=== PATIENT | male | born 1990 | race Caucasian/White ===

== ENCOUNTER 2025-01-27 11:23 | Inpatient (IN) | payer SELFPAY ==
[2025-01-27 11:27] VITALS: BP 139/91; PULSE 98; TEMP 36.9; O2SAT 98; BMI 29.2
--- NOTE | 2025-01-27 11:43 | ED.C_ITS ---
HPI - Psych 2 General: Chief Complaint: Psychiatric Symptoms Stated Complaint: aggression, mhe, not taking medication Time Seen by Provider: 01/27/25 11:37 History of Present Illness: 34-year-old male presents to the emergen cy room with complaints of depression. He is on duloxetine and doxepin. But he has not been taking his medications. He states he is extremely depressed he cries frequently while we are taking his history. He denies doing anything to harm himself. He came in with his father who reported that he had been wandering in the with. When asked the patient if he did anything to harm self or had plans he said he was just going to go out in the [place] and stay there when asked specifically if he had done anything to harm himself today he denied it. Father reported to nursing staff he has been very aggressive. Patient is seen by Dr. Gamez here in [facility] but has not seen him for nearly a year. Patient states he was started on antidepressants 2 years ago about a year ago the dose was changed he does not feel like they are really helping much. Father states patient has been very aggressive towards uncle and at times him. He is concerned he may hurt someone. He denies the patient made any suicidal threats. Associated symptoms: Reports depression Related Data Home Medications ?Medication ?Instructions ?Recorded ?Confirmed No Known Home Medications 01/27/2501/09 Allergies Allergy/AdvReac Type Severity Reaction Status Date / Time No Known Allergies Allergy Verified 01/27/25 11:34 Review of Systems 2 Const: Denies: fever(s) or chills Card: Denies: chest pain Resp: Denies: dyspnea GI: Denies: abdominal pain : Denies: dysuria, urinary frequency or urinary urgency Musc: Denies: neck pain or back pain Skin/Breast: Denies: rash Psych: Reports: anxiety and depression PFS ED 2 PFSH: Medical History Insomnia BMI 30.0-30.9,adult Anxiety and depression Family History Father Depression Hypertension Anxiety Mother Diabetes Depression Blindness and low vision Low bone density Social History Smoking and tobacco/nicotine status: unknown if used tobacco/nicotine Alcohol intake: never Substance/Drug Use: never Physical Exam 2 Const: COMMON NORMALS: no acute distress GENERAL APPEARANCE: cooperative and comfortable ORIENTATION/CONSCIOUSNESS: Yes awake, Yes oriented to person, Yes oriented to place and Yes oriented to time HENMT: COMMON NORMALS: normocephalic, atraumatic and hearing grossly normal bilaterally HEAD & SCALP: normocephalic and atraumatic Resp: COMMON NORMALS: normal respiratory effort, No retractions, No use of accessory muscles and clear to auscultation bilaterally AUSCULTATION: clear to auscultation bilaterally Cardio: COMMON NORMALS: regular rate, regular rhythm and No murmurs present (Cardio) RATE: regular rate RHYTHM: regular rhythm Extremity: COMMON NORMALS: normal to inspection, capillary refill normal, no clubbing, cyanosis or edema, no calf tenderness and no pedal edema Neuro: SENSORIUM/ORIENTATION: Yes oriented to person, Yes oriented to place and Yes oriented to time Skin: COMMON NORMALS: no rashes or lesions noted GENERAL SKIN EXAM: no rashes or lesions noted Course 2 Vital Signs: Vital signs: Vital Signs Temperature 98.4 F 01/27/25 11:27 Pulse Rate 101 H 01/27/25 15:09 Respiratory Rate 18 01/27/25 15:09 Blood Pressure 145/92 01/27/25 15:09 Pulse Oximetry 98 01/27/25 15:09 Oxygen Delivery Me thod Room Air 01/27/25 15:09 MDM - Psych Medical Decision Making Discussed with Dr. Antonio. Will admit for depression and suicidal ideation. Orders written Medical Records I reviewed the patient's medical records. Lab Data I reviewed the patient's lab results. 01/27/25 11:47 01/27/25 11:47 Laboratory Results WBC 10.31 10^3/uL (3.29-11.43) 01/27/25 11:47 RBC 5.87 10^6/uL (3.85-5.65) H 01/27/25 11:47 Hgb 17.10 g/dL (11.27-16.99) H 01/27/25 11:47 Hct 50.1 % (37-53) 01/27/25 11:47 MCV 85.3 fl (82-101) 01/27/25 11:47 MCH 29.1 pg (27-33) 01/27/25 11:47 MCHC 34.1 g/dL (30-55) 01/27/25 11:47 RDW 12.6 % (12.1-15.1) 01/27/25 11:47 Plt Count 233 10^3/cmm (157-399) 01/27/25 11:47 MPV 10.3 fL (7.4-10.4) 01/27/25 11:47 Neut % (Auto) 70.8 % 01/27/25 11:47 Lymph % (Auto) 16.9 % 01/27/25 11:47 [place] % (Auto) 8.9 % 01/27/25 11:47 Eos % (Auto) 1.7 % 01/27/25 11:47 Baso % (Auto) 1.4 % 01/27/25 11:47 Neut # (Auto) 7.30 10^3/uL (1.8-7.7) 01/27/25 11:47 Lymph # (Auto) 1.7 10^3/uL (0.8-4.8) 01/27/25 11:47 [place] # (Auto) 0.9 10^3/uL (0.2-0.9) 01/27/25 11:47 Eos # (Auto) 0.2 10^3/uL (0.0-0.8) 01/27/25 11:47 Baso # (Auto) 0.1 10^3/uL (0.0-0.1) 01/27/25 11:47 Nucleated RBC % (auto) 0 % 01/27/25 11:47 Nucleated RBCs # 0.0 /100WBC 01/27/25 11:47 Sodium 139 mmol/L (136-145) 01/27/25 11:47 Potassium 3.9 mmol/L (3.5-5.1) 01/27/25 11:47 Chloride 102 mmol/L (98-107) 01/27/25 11:47 Carbon Dioxide 23 mmol/L (22-29) 01/27/25 11:47 Anion Gap 17.9 (5-19) 01/27/25 11:47 BUN 11 mg/dL (6-20) 01/27/25 11:47 Creatinine 0.8 mg/dL (0.7-1.2) 01/27/25 11:47 GFR Calculation 111.3 mL/min (90-130) 01/27/25 11:47 Glucose 95 mg/dL (65-115) 01/27/25 11:47 Calculated Osmolality 287 mOsm/kg (285-295) 01/27/25 11:47 Calcium 9.8 mg/dL (8.5-10.5) 01/27/25 11:47 Total Bilirubin 0.5 mg/dL (0.15-1.2) 01/27/25 11:47 AST 16 U/L (0-40) 01/27/25 11:47 ALT 23 U/L (0-41) 01/27/25 11:47 Alkaline Phosphatase 88 U/L (40-130) 01/27/25 11:47 Total Protein 7.4 g/dL (6.6-8.7) 01/27/25 11:47 Albumin 4.5 g/dL (3.5-5.2) 01/27/25 11:47 Globulin 2.9 g/dL (1.3-4.6) 01/27/25 11:47 Salicylates < 0.3 mg/dL (3-10) L 01/27/25 11:47 Acetaminophen < 5.0 ug/mL (10-30) L 01/27/25 11:47 No radiology studies performed this visit Discharge Plan Discharge Patient Disposition: Admitted As Inpatient Admit Provider: Antony Antonio Clinical Impression: Anxiety and depression, Suicidal ideation Condition: Stable Coding Level of Care Code ED Multigrapher for Sapna Bravo
[2025-01-27 11:54] LABS: Basophils # 0.1 10^3/uL (0.0-0.1); Basophils % 1.4 %; Eosinophils # 0.2 10^3/uL (0.0-0.8); Eosinophils % 1.7 %; Hematocrit 50.1 % (37-53); Lymphocytes # 1.7 10^3/uL (0.8-4.8); Lymphocytes % 16.9 %; Mean Corpuscular HGB Conc 34.1 g/dL (30-55); Mean Corpuscular Hemoglobin 29.1 pg (27-33); Mean Corpuscular Volume 85.3 fl (82-101); Mean Platelet Volume 10.3 fL (7.4-10.4); Monocytes # 0.9 10^3/uL (0.2-0.9); Monocytes % 8.9 %; Neutrophils % 70.8 %; Nucleated Red Blood Cells % 0 %; Platelet Count 233 10^3/cmm (157-399); Red Blood Count 5.87 10^6/uL (3.85-5.65); Red Cell Distribution Width 12.6 % (12.1-15.1); White Blood Count 10.31 10^3/uL (3.29-11.43)
[2025-01-27 12:12] LABS: Alanine Aminotransferase 23 U/L (0-41); Albumin Level 4.5 g/dL (3.5-5.2); Alkaline Phosphatase 88 U/L (40-130); Anion Gap 17.9 (5-19); Aspartate Amino Transferase 16 U/L (0-40); Blood Urea Nitrogen 11 mg/dL (6-20); Calcium 9.8 mg/dL (8.5-10.5); Carbon Dioxide 23 mmol/L (22-29); Chloride 102 mmol/L (98-107); Creatinine Clr Calc Pharmacy 136.7014; Globulin 2.9 g/dL (1.3-4.6); Glomerular Filtration Rate 111.3 mL/min (90-130); Glucose 95 mg/dL (65-115); Osmolality Calculated 287 mOsm/kg (285-295); Potassium 3.9 mmol/L (3.5-5.1); Sodium 139 mmol/L (136-145); Total Bilirubin 0.5 mg/dL (0.15-1.2); Total Protein 7.4 g/dL (6.6-8.7)
[2025-01-27 12:14] LABS: Acetaminophen < 5.0 ug/mL (10-30); Salicylate < 0.3 mg/dL (3-10)
[2025-01-27 14:13] LABS: Amphetamines Screen Urine Negative (Negative); Barbiturates Screen Urine Negative (Negative); Benzodiazepines Screen Urine Negative (Negative); Cocaine Screen Urine Negative (Negative); Opiate Screen Urine Negative (Negative); PCP Screen Urine Negative (Negative); THC Screen Urine Negative (Negative)
[2025-01-27 15:09] VITALS: BP 145/92; PULSE 101; RESP 18; O2SAT 98
[2025-01-27] MEDS: hyDROXYzine 25 mg Capsule 50 MG PO ×2 (15:49→23:02)
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
[2025-01-27 19:31] VITALS: BP 125/72; PULSE 95; RESP 15; TEMP 36.5; O2SAT 95
[2025-01-27] MEDS: trazodone 50 mg Tablet PO (23:02)
[2025-01-28 06:00] VITALS: BP 105/68; PULSE 86; RESP 16; TEMP 36.6; O2SAT 96
[2025-01-28] MEDS: nicotine 2 mg Gum BUCCAL (12:42)
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
[2025-01-28 14:00] VITALS: BP 120/76; PULSE 95; RESP 18; TEMP 36.3; O2SAT 96
[2025-01-28] MEDS: fluoxetine 20 mg Capsule PO (14:45)
--- NOTE | 2025-01-28 14:49 | PC.NURSE ---
CALLED [facility] IN [place] TO VERIFY HOME MEDICATIONS. ENDOSCOPY NURSE STATED PATIENT HAS NOT HAD ANY MEDS FILLED OR PICKED UP SINCE APRIL 2024 FOLLOWS: CYMBALTA 90 MG DAILY, DOXEPIN 25 MG @ HS PRN, EFFEXOR 37.5 MG DAILY. INFO RELAYED TO DR. PATTERSON
[2025-01-28 20:19] VITALS: BP 118/77; PULSE 76; RESP 18; TEMP 36.6; O2SAT 95
[2025-01-28] MEDS: trazodone 50 mg Tablet PO (20:22)
[2025-01-29 06:00] VITALS: BP 119/67; PULSE 92; RESP 18; TEMP 36.8; O2SAT 97
[2025-01-29] MEDS: nicotine 2 mg Gum BUCCAL ×3 (08:31→20:24)
[2025-01-29] MEDS: fluoxetine 20 mg Capsule PO (08:31)
[2025-01-29 14:00] VITALS: BP 115/78; PULSE 85; RESP 18; TEMP 36.6; O2SAT 97
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
[2025-01-29 19:59] VITALS: BP 119/67; PULSE 85; RESP 18; O2SAT 96
[2025-01-29] MEDS: trazodone 50 mg Tablet PO (20:24)
[2025-01-30 06:00] VITALS: BP 104/67; PULSE 75; RESP 16; O2SAT 99
[2025-01-30] MEDS: fluoxetine 20 mg Capsule PO (08:25)
[2025-01-30] MEDS: nicotine 2 mg Gum BUCCAL ×4 (08:25→17:18)
[2025-01-30 14:00] VITALS: BP 128/88; PULSE 97; RESP 16; TEMP 36.6; O2SAT 93
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
[2025-01-30 19:46] VITALS: BP 127/77; PULSE 96; RESP 18; TEMP 36.5; O2SAT 97
[2025-01-30] MEDS: trazodone 50 mg Tablet PO (20:18)
[2025-01-30] MEDS: hyDROXYzine 25 mg Capsule 50 MG PO (20:18)
[2025-01-31 06:00] VITALS: BP 123/68; PULSE 99; RESP 18; TEMP 36.6; O2SAT 97
[2025-01-31] MEDS: nicotine 2 mg Gum BUCCAL ×2 (07:30→11:04)
[2025-01-31] MEDS: fluoxetine 20 mg Capsule PO (08:15)
--- NOTE | 2025-01-31 10:05 | PC.NURSE ---
Pt states that he slept good last night. Reports no anxiety or depression. Denies hallucinations. No reports of SI/HI. He denies pain. States that he had a BM yesterday and that is his normal. this nurse noticed that patients eyes and the skin around his eyes was very red, I asked pt about this and he states that he has really bad allergies this time of the year and this is normal for him. He states that it was like this before coming in. The skin around his eyes resembles that of a sunburn. Pt stated that he was excited and hopeful for d/c today.
[2025-01-31 14:06] VITALS: BP 123/68; PULSE 99; RESP 18; TEMP 36.6; O2SAT 97
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
== END 2025-01-31 15:45 | disposition home or self-care (01) | DRG 885 ==
LOC: ER 12:47 → NP 13:50
PROVIDERS: Admitting Provider Psychiatry & Neurology Psychiatry; Emergency Provider Family Medicine; Visit Provider Psychiatry & Neurology Psychiatry
DX: F33.9 Major depressive disorder, recurrent, unspecified (principal); R45.851 Suicidal ideations; F43.25 Adjustment disorder with mixed disturbance of emotions and conduct; F41.1 Generalized anxiety disorder; F40.10 Social phobia, unspecified; F43.10 Post-traumatic stress disorder, unspecified; F51.01 Primary insomnia; F70 Mild intellectual disabilities; F17.220 Nicotine dependence, chewing tobacco, uncomplicated; E66.9 Obesity, unspecified; Z68.29 Body mass index [BMI] 29.0-29.9, adult; Z81.8 Family history of other mental and behavioral disorders
CPT/HCPCS: 36415; 80053; 80306; 80307; 85025; 97150; 97165; 99285; J9999